=== PATIENT | male | born 1985 ===

== ENCOUNTER 2020-03-09 07:06 | Outpatient (REF) | payer OTHER, SELFPAY | END 2020-03-09 07:07 | disposition home or self-care (01) | LOC: HO.LAB 07:06 | PROVIDERS: Visit Provider Internal Medicine | DX: Z20.822 Contact with and (suspected) exposure to COVID-19 (principal) | CPT/HCPCS: 36415; C9803; U0003 ==

== ENCOUNTER 2020-06-11 09:34 | Outpatient (REF) | payer OTHER, SELFPAY ==
[2020-06-11 09:53] LABS: COVID-19 Test Negative (Negative); IDNOW Serial# 55D5AD1C
== END 2020-06-11 09:35 | disposition home or self-care (01) ==
LOC: HO.LAB 09:34
PROVIDERS: Visit Provider Internal Medicine
DX: Z20.822 Contact with and (suspected) exposure to COVID-19 (principal)
CPT/HCPCS: 36415; 87635; C9803

== ENCOUNTER 2021-01-14 07:38 | Emergency (ER) | payer MEDICAID, SELFPAY ==
--- NOTE | ~2021-01-14 | XR_ITS ---
EXAMINATION: XR LUMBAR SPINE XR PELVIS WITH HIP, LEFT CLINICAL INFORMATION: Low back pain radiating down left leg. Left hip pain. COMPARISON: None TECHNIQUE: The lumbar spine is imaged in 3 views. AP view pelvis is performed along with AP and frog-lateral projections left hip. FINDINGS: Lumbar spine: There are 5 nonrib-bearing lumbar vertebrae of normal height and normal lumbar lordosis. There is no lumbar vertebral compression, spondylolisthesis, or destructive process. There are degenerative disc changes at L4-L5 with disc narrowing and endplate sclerosis and vertebral spurring. There are borderline degenerative changes lumbosacral junction. The SI joints and visualized sacrum are unremarkable. Pelvis and left hip: There is no diastases SI joints or pubis. The bony pelvis appears intact. Bowel gas unremarkable. There are calcified phleboliths lower left pelvis. There is no fracture or dislocation. The hip show no joint narrowing or erosive change or chondrocalcinosis. Soft tissue planes around the hips appear normal. Left hip unremarkable. XR/XR lumbar spine 2-3V IMPRESSION: 1. Degenerative disc changes L4-L5. Borderline degenerative disc changes L5-S1. 2. No fracture or dislocation. No hip arthropathy.
--- NOTE | ~2021-01-14 | XR_ITS ---
EXAMINATION: XR LUMBAR SPINE XR PELVIS WITH HIP, LEFT CLINICAL INFORMATION: Low back pain radiating down left leg. Left hip pain. COMPARISON: None TECHNIQUE: The lumbar spine is imaged in 3 views. AP view pelvis is performed along with AP and frog-lateral projections left hip. FINDINGS: Lumbar spine: There are 5 nonrib-bearing lumbar vertebrae of normal height and normal lumbar lordosis. There is no lumbar vertebral compression, spondylolisthesis, or destructive process. There are degenerative disc changes at L4-L5 with disc narrowing and endplate sclerosis and vertebral spurring. There are borderline degenerative changes lumbosacral junction. The SI joints and visualized sacrum are unremarkable. Pelvis and left hip: There is no diastases SI joints or pubis. The bony pelvis appears intact. Bowel gas unremarkable. There are calcified phleboliths lower left pelvis. There is no fracture or dislocation. The hip show no joint narrowing or erosive change or chondrocalcinosis. Soft tissue planes around the hips appear normal. Left hip unremarkable. XR/XR hip LT w PEL1V IMPRESSION: 1. Degenerative disc changes L4-L5. Borderline degenerative disc changes L5-S1. 2. No fracture or dislocation. No hip arthropathy.
[2021-01-14 07:39] VITALS: BP 143/75; PULSE 107; RESP 18; TEMP 36.6; O2SAT 98; BMI 23.5
--- NOTE | 2021-01-14 08:01 | ED.BACK ---
HPI - Back Pain/Injury General Chief Complaint: Back Pain/Injury Stated Complaint: low back/leg pain Time Seen by Provider: 01/14/21 07:43 Source: patient Mode of arrival: ambulatory Limitations: no limitations Related Data Allergies Allergy/AdvReac Type Severity Reaction Status Date / Time No Known Allergies Allergy Unverified 11/06/19 15:48 [No Known Allergies*] [facility] Past Medical History Attestation statement: The following information was validated with the patient. Medical History HTN (hypertension) Social History Social History (Updated 01/14/21 @ 08:03 by Terra Calvin DO) Patient Tobacco Use Status: Never used Tobacco Use of substances other than those prescribed or required for medical reasons: No Advance Directives: No Physical Exam Vital Signs: Vital Signs: Last Vital Signs Temp 98 F 01/14/21 07:39 Pulse 107 H 01/14/21 07:39 Resp 18 01/14/21 07:39 BP 143/75 H 01/14/21 07:39 Pulse Ox 98 01/14/21 07:39 Body Mass Index 23.5
[2021-01-14] MEDS: Cyclobenzaprine HCl 10 MG TABLET PO (08:55)
--- NOTE | 2021-01-14 08:55 | ED_ITS ---
HPI - General Adult General Chief complaint: Back Pain/Injury Stated complaint: low back/leg pain Time Seen by Provider: 01/14/21 07:43 Source: patient Mode of arrival: ambulatory Limitations: no limitations History of Present Illness HPI narrative: 35-year-old male with history of chronic back pain presents to ED for back pain exacerbation the past 2 weeks. Patient states back pain radiating down left hip down left lower extremity tingling. Patient denies any urinary/bowel incontinence. She denies any recent trauma, abdominal pain, flank pain, dysuria, hematuria, nausea, or vomiting. Related Data Previous Rx's Medication Instructions Recorded cyclobenzaprine 10 mg tablet 10 mg PO TID PRN #21 tab 01/14/21 ketorolac 10 mg tablet 10 mg PO QID PRN 5 Days #20 tab 01/14/21 oxycodone-acetaminophen 5 mg-325 1 tab PO TID PRN 3 Days #9 tab 01/14/21 mg tablet (Percocet) prednisone 20 mg tablet 60 mg PO DAILY 5 Days #15 tab 01/14/21 Allergies Allergy/AdvReac Type Severity Reaction Status Date / Time No Known Allergies Allergy Unverified 11/06/19 15:48 [No Known Allergies*] Review of Systems Review of Systems: Yes all other systems are reviewed and are negative Constitutional: Constitutional: Reports as per HPI and Reports no additional constitutional complaints Eyes: Eyes: Reports as per HPI and Reports no additional eye complaints ENT: Reports system reviewed and no additional complaints, except as documented and Reports as per HPI Cardiovascular: Cardiovascular: Reports as per HPI and Reports no additional cardiovascular complaints Respiratory: Respiratory: Reports as per HPI and Reports no additional respiratory complaints Gastrointestinal: Gastrointestinal: Reports as per HPI and Reports no addition al gastrointestinal complaints Genitourinary: Genitourinary: Reports no additional male genitourinary complaints and Reports as per HPI Musculoskeletal: Musculoskeletal: Reports no additional musculoskeletal complaints, Reports as per HPI and Reports back pain Integumentary/Breasts: Skin/Breast: Reports system reviewed and no additional complaints, except as docu and Reports as per HPI Neurologic: Reports system reviewed and no additional complaints, except as documented and Reports as per HPI PMFSH Past Medical History Medical History HTN (hypertension) Social History Social History (Updated 01/14/21 @ 08:03 by Terra Calvin DO) Patient Tobacco Use Status: Never used Tobacco Use of substances other than those prescribed or required for medical reasons: No Advance Directives: No Physical Exam Vital Signs: Vital Signs: Last Vital Signs Temp 98 F 01/14/21 07:39 Pulse 107 H 01/14/21 07:39 Resp 18 01/14/21 07:39 BP 143/75 H 01/14/21 07:39 Pulse Ox 98 01/14/21 07:39 Body Mass Index 23.5 Const: General: cooperative, healthy appearing, well developed, alert, awake and acute distress Orientation/consciousness: patient oriented x3 HENMT: Head: Yes normal to inspection, Yes No palpable skull fracture present, Yes normocephalic and Yes atraumatic Eyes: General: appearance normal, both eyes and all related structures Neck: Neck: Yes normal visual inspection, Yes full ROM, Yes no lymphade nopathy, Yes no meningeal signs, Yes trachea midline, Yes supple, No anterior neck swelling and No tender Chest: Chest palpation & inspection: normal inspection of the chest and normal palpation of entire chest wall Resp: Effort & Inspection: normal respiratory effort and able to speak in co mplete sentences Auscultation: clear to auscultation bilaterally Cardio: Jugular venous distension: no JVD Heart sounds: S1 normal heart sound present and S2 normal heart sound present GI: Inspection: Yes normal to inspection and No abdominal wall ecchymosis Palpation (GI): Soft to palpation, not firm, nontender and no guarding : General: No CVA tenderness and Yes no CVA tenderness Back/Spine/Pelvis: Back: no CVA tenderness, No CVA tenderness and back tenderness (Lumbar) Skin: General skin exam: no rashes or lesions noted and elasticity normal Neuro: General: patient oriented x3, gait normal, no meningeal signs and CN's II-XI intact bilaterally Cranial nerves: Yes CN's II-XII intact bilaterally Extrem: General: Yes normal to inspection and Yes full ROM Psych: Appearance: grossly normal, well kempt and not disheveled Course Course Course Narrative: Pain meds and images ordered for patient. 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 Patient has normal gait. Not suspecting cord compression or epidural abscess. Patient denies any history of HIV, hepatitis-C, IV drug use or any immunocompromised states. patient denies any urinary/bowel incontinence. Patient's symptoms improved after receiving tramadol, Valium, cyclobenzaprine, steroids, and Toradol. Time: 10:33 Medical Decision Making [facility] Narrative Medical decision making narrative: Lumbar radiculopathy Discharge Plan Discharge Clinical Impression: Lumbar radiculopathy Patient Disposition: Home, Self-Care Instructions: Lumbar Radiculopathy (ED) Additional Instructions: Your x-ray shows degenerative arthritis of the lumbar spine. This is causing her pain. You will be discharged with pain medication and steroids. Uni follow-up with primary care for vital for possible referred to physical therapy. Return to the ED for any urinary/bowel incontinence, inability to ambulate, weakness in lower extremities, abdominal pain, nausea, vomiting, flank pain, fever, chills, dysuria, hematuria Prescriptions: New ketorolac 10 mg tablet 10 mg PO QID PRN (Reason: pain) 5 Days Qty: 20 RF: 0 prednisone 20 mg tablet 60 mg PO DAILY 5 Days Qty: 15 RF: 0 oxycodone-acetaminophen [Percocet] 5-325 mg tablet 1 tab PO TID PRN (Reason: pain) 3 Days Qty: 9 RF: 0 cyclobenzaprine 10 mg tablet 10 mg PO TID PRN (Reason: pain) Qty: 21 RF: 0 Stand Alone Forms: Work/School Release Interventions: ED Discharge Assessment Last Done: 01/14/21 11:08 Discharge Date/Time: 01/14/21 11:09 Print Language: Polish
[2021-01-14] MEDS: Ketorolac Tromethamine 60 MG/2 ML VIAL IM (08:56)
[2021-01-14] MEDS: predniSONE 20 MG TABLET 60 MG PO (08:57)
[2021-01-14] MEDS: traMADoL HCL 50 MG TABLET PO (10:02)
[2021-01-14] MEDS: diazePAM 5 MG TABLET PO (10:02)
== END 2021-01-14 11:09 | disposition home or self-care (01) ==
PROVIDERS: Emergency Provider Emergency Medicine
DX: M54.16 Radiculopathy, lumbar region (principal); M54.42 Lumbago with sciatica, left side; I10 Essential (primary) hypertension
CPT/HCPCS: 72100; 73502; 96372; 99284; J1885

== ENCOUNTER → 2021-12-16 08:10 | Outpatient (BNVA) | payer SELFPAY | PROVIDERS: Visit Provider Internal Medicine | DX: Z02.79 Encounter for issue of other medical certificate (principal) ==

== ENCOUNTER 2022-04-03 07:55 | Emergency (ER) | payer MEDICAID, SELFPAY ==
--- NOTE | ~2022-04-03 | XR_ITS ---
EXAMINATION: XR TOES, RIGHT CLINICAL INFORMATION: Trauma, pain COMPARISON: None TECHNIQUE: AP view right foot in 2 views right great toe are obtained for a total of 3 views. FINDINGS: There is subtle nondisplaced comminuted hairline fractures suggested involving the distal phalanx great toe at shaft and distal phalanx tuft, best appreciated on the AP view of the foot. There is no distraction or displacement. No destructive process or dislocation. The remainder the bony structures appear intact. Incidental bone island present base third toe middle phalanx. XR/XR toe RT min 2V IMPRESSION: Nondisplaced comminuted hairline fracture distal phalanx great toe.
[2022-04-03 07:56] VITALS: BP 143/86; PULSE 84; RESP 18; TEMP 36.6; O2SAT 98; BMI 26.9
--- NOTE | 2022-04-03 08:07 | ED_ITS ---
HPI - General Adult General Chief complaint: Extremity Injury, Lower Stated complaint: r foot inj dropped dresser on it Time Seen by Provider: 04/03/22 08:07 Source: patient Mode of arrival: ambulatory Limitations: no limitations History of Present Illness HPI narrative: Patient is a 36 year old assigned male at with no reported medical history presenting to the emergency department today with right great toe pain. Patient states that he dropped a dresser on his right great toe 3 days ago and it is still causing him pain. Patient denies any dizziness, lightheadedness, abdominal pain, nausea, vomiting, fever, chills, blurry vision, double vision, loss of vision, chest pain, difficulty breathing, shortness of breath, back pain, night sweats, pain with urination, increased urinary frequency, increased urinary urgency, blood in his urine or stool, syncope or a near syncopal episode, bowel incontinence, bladder incontinence, bowel retention, bladder retention, or any other complaints at this time. Onset (ago): day(s) (3) Location: right and lower extremity (great toe) Radiation: non-radiation Severity: mild Severity scale (1-10): 3 Quality: dull Pain Consistency: constant Relieving factors: none Exacerbating factors: movement Associated symptoms: denies other symptoms Treatments prior to arrival: none Related Data Previous Rx's Medication Instructions Recorded cyclobenzaprine 10 mg tablet 10 mg PO TID PRN pain #21 tabs 01/14/21 ketorolac 10 mg tablet 10 mg PO QID PRN pain 5 days #20 01/14/21 tabs oxycodone-acetaminophen 5 mg-325 1 tab PO TID PRN pain 3 days #9 01/14/21 mg tablet (Percocet) tabs prednisone 20 mg tablet 60 mg PO DAILY 5 days #15 tabs 01/14/21 Allergies Allergy/AdvReac Type Severity Reaction Status Date / Time No Known Allergies Allergy Verified 04/03/22 08:01 [No Known Allergies*] Review of Systems Constitutional: Constitutional: Reports no additional constitutional complaints, Denies chills, Denies fever(s) and Denies night sweats Eyes: Eyes: Reports no additional eye complaints, Denies blurry vision, Denies change in vision, Denies diplopia, Denies eye discharge, Denies loss of vision and Denies eye pain ENT: Denies dizziness Cardiovascular: Cardiovascular: Reports no additional cardiovascular complaints, Denies chest pain, Denies lightheadedness, Denies Loss of Consciousness and Denies dyspnea Respiratory: Respiratory: Reports no additional respiratory complaints and Denies dyspnea Gastrointestinal: Gastrointestinal: Reports no additional gastrointestinal complaints, Denies abdominal pain, Denies melena, Denies hematochezia, Denies change in bowel habits and Denies change in stool character Genitourinary: Genitourinary: Reports no additional male genitourinary complaints, Denies hematuria, Denies oliguria, Denies difficulty urinating, Denies dysuria, Denies urinary frequency, Denies urinary hesitancy, Denies urinary incontinence and Denies urinary urgency Musculoskeletal: Musculoskeletal: Reports no additional musculoskeletal complaints, Denies numbness and Denies tingling Comments: right great toe pain Neurologic: Denies dizziness, Denies loss of vision, Denies numbness and Denies tingling Psychiatric: Psychiatric: Reports no additional psychiatric complaints Endocrine: Endocrine: Reports no additional endocrine complaints Hematologic/Lymphatic: Hematologic/Lymphatic: Reports no additional hematologic/lymphatic complaints Allergic/Immunologic: Allergic/Immunologic: Reports no additional allergic/immunologic complaints PMFSH Past Medical History Attestation statement: The following information was validated with the patient. Source: old records reviewed and nursing notes reviewed Medical History HTN (hypertension) Social History Social History Alcohol intake: never Patient Tobacco Use Status: Never used Tobacco Smoked in Last 30 Days: Yes Use of substances other than those prescribed or required for medical reasons: No Advance Directives: No Advance Directives Information Provided: Yes Physical Exam ED Vital Signs: Vital Signs - 24 hr 04/03/22 07:56 04/03/22 10:19 Temperature 97.9 F 97.7 F Pulse Rate 84 66 Respiratory Rate 18 16 Blood Pressure 143/86 H 118/71 Pulse Oximetry 98 97 Oxygen Delivery Method Room Air Room Air BMI result Body Mass Index 26.9 Const General: cooperative, no acute distress, alert and awake Nutritional Appearance: well nourished Orientation/consciousness: patient oriented x3 Limitations: no limitations HENMT Head: Yes normal to inspection and Yes atraumatic Ears: hearing grossly normal bilaterally and external ears normal General nose exam: Normal external nose present, no nasal discharge noted and no epistaxis Face and sinus: Yes normal facial exam, No abrasion and No laceration Mouth: Normal oral and palatal mucosa present, no drooling and no muffled voice Eyes General: appearance normal, both eyes and all related structures Periorbital: periorbital findings normal Eyelids: Yes eyelids normal Conjunctivae: conjunctivae normal Pupils: Equal, round and reactive pupils present EOM: EOMs intact bilaterally Neck Neck: Yes normal visual inspection, Yes full ROM and Yes no lymphadenopathy Chest Chest palpation & inspection: normal inspection of the chest Resp Effort & Inspection: normal respiratory effort and able to speak in complete sentences Auscultation: clear to auscultation bilaterally Cardio Rate: regular rate Rhythm: regular rhythm GI Inspection: Yes normal to inspection Palpation (GI): Soft to palpation, not firm, nontender and no guarding Neuro General: patient oriented x3 and moves all extremities Cranial nerves: Yes Equal, round and reactive pupils present Cognition (Neuro): normal cognition Motor exam (neuro): 5/5 motor strength present throughout Sensory Exam: Normal double simultaneous stimulation for sensation Coordination: [id number] test normal Extrem General: Yes normal to inspection, Yes full ROM and Yes capillary refill normal Psych Appearance: grossly normal Mental Status: mental status grossly normal Affect: normal affect Attitude: cooperative Thought process: Normal thought process present Thought content: Normal thought content present Insight: Good insight present (Psych) Procedures Orthopedic Splinting/Casting Injury #1: Side: right Lower Extremity Injury Location: toe Lower Extremity Immobilizer: boot orthosis Medical Decision Making Medical Decision Making MDM Narrative: Patient is a 36 year old assigned male at with no reported medical history presenting to the emergency department today with right great toe injury. Patient's physical exam was unremarkable. Patient's right toe x-ray showed an acute right great toe fracture. I explained my physical exam findings as well as all test results to the patient. I answered all questions asked by the patient. Patient's right foot was placed in a walking boot, without incident. I stressed the importance of the patient taking his medication as prescribed. I stressed the importance of the patient following up with his primary care provider and an orthopedic provider. I stressed the importance of the patient returning to the emergency department immediately if his symptoms were to worsen or if he were to develop any dizziness, shortness of breath, difficulty breathing, chest pain, blurry vision, loss of vision, nausea, vomiting, abdominal pain, fever, chills, back pain, or any other complaints. Patient verbalized agreement and understanding with this treatment plan and discharge. Differential Diagnosis Differential Diagnoses: The differential diagnosis associated with the presentation includes right great toe fracture Independent Interpretation Interpretation: My interpretation is in agreement with the radiologist's impression of this imaging study. EXAMINATION: XR TOES, RIGHT CLINICAL INFORMATION: Trauma, pain COMPARISON: None TECHNIQUE: AP view right foot in 2 views right great toe are obtained for a total of 3 views. FINDINGS: There is subtle nondisplaced comminuted hairline fractures suggested involving the distal phalanx great toe at shaft and distal phalanx tuft, best appreciated on the AP view of the foot. There is no distraction or displacement. No destructive process or dislocation. The remainder the bony structures appear intact. Incidental bone island present base third toe middle phalanx. XR/XR toe RT min 2V IMPRESSION: Nondisplaced comminuted hairline fracture distal phalanx great toe. Dictated By: Johnny Martinez MD Signed By: Electronically signed by Johnny Martinez MD 04/03/22 0944 Discharge Plan Discharge Clinical Impression: Fracture of toe Patient Disposition: Home, Self-Care Instructions: Toe Fracture (ED), Walking Boot (ED) Additional Instructions: Follow up with your primary care provider. Return to the emergency department immediately if your symptoms worsen or if you develop any dizziness, shortness of breath, difficulty breathing, chest pain, blurry vision, loss of vision, nausea, vomiting, abdominal pain, fever, chills, back pain, or any other complaints. Prescriptions: No Action ketorolac 10 mg tablet 10 mg PO QID PRN (Reason: pain) 5 Days Qty: 20 0RF Rx Instructions: patient received IM 60mg toradol in the ED prednisone 20 mg tablet 60 mg PO DAILY 5 Days Qty: 15 0RF oxycodone-acetaminophen [Percocet] 5-325 mg tablet 1 tab PO TID PRN (Reason: pain) 3 Days Qty: 9 0RF Rx Instructions: side effect is drowsiness. Do not take at work or while driving. cyclobenzaprine 10 mg tablet 10 mg PO TID PRN (Reason: pain) Qty: 21 0RF Rx Instructions: side effect is drowsiness. Do not take at work or while driving. [place]errals: [facility] [Provider Group] (Call to establish and follow up with an orthopedic provider. ) [facility] [Primary Care Provider] - Stand Alone Forms: Work/School Release Interventions: ED Discharge Assessment Last Done: 04/03/22 10:44 Discharge Date/Time: 04/03/22 10:44 Print Language: Divehi
[2022-04-03 10:19] VITALS: BP 118/71; PULSE 66; RESP 16; TEMP 36.5; O2SAT 97
== END 2022-04-03 10:44 | disposition home or self-care (01) ==
PROVIDERS: Emergency Provider Emergency Medicine
DX: S92.424A Nondisplaced fracture of distal phalanx of right great toe, initial encounter for closed fracture (principal); W20.8XXA Other cause of strike by thrown, projected or falling object, initial encounter; Y93.89 Activity, other specified; Y92.019 Unspecified place in single-family (private) house as the place of occurrence of the external cause; Y99.9 Unspecified external cause status
CPT/HCPCS: 73660; 99283; 99284

== ENCOUNTER 2022-10-01 19:23 | Emergency (ER) | payer MEDICAID, SELFPAY ==
[2022-10-01 19:58] VITALS: BP 119/75; PULSE 86; RESP 18; TEMP 36.6; O2SAT 97; BMI 27.2
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
== END 2022-10-01 20:12 | disposition home or self-care (01) ==
LOC: HO.ED 20:06
PROVIDERS: Emergency Provider Internal Medicine
DX: M54.50 Low back pain, unspecified (principal)
CPT/HCPCS: 99282

== ENCOUNTER 2023-05-22 13:48 | Emergency (ER) | payer OTHER, SELFPAY ==
--- NOTE | ~2023-05-22 | XR_ITS ---
EXAMINATION: XR HAND/WRIST, RIGHT CLINICAL INFORMATION: Punched wall COMPARISON: None TECHNIQUE: Four views of the right hand and wrist. FINDINGS: No acute visible fracture or dislocation. Slight positive variance. Joint spaces and alignment are otherwise maintained. Soft tissues are unremarkable. XR/XR hand wrist RT IMPRESSION: 1. No acute visible fracture or dislocation. 2. Slight positive variance.
[2023-05-22 14:24] VITALS: BP 116/73; PULSE 94; RESP 16; TEMP 36.6; O2SAT 97; BMI 25.1
--- NOTE | 2023-05-22 15:43 | ED.EXTPRO ---
HPI - Extremity Problem General Chief complaint: Extremity Injury, Upper Stated complaint: R Hand Pain Time Seen by Provider: 05/22/23 14:36 Source: patient and RN notes reviewed Mode of arrival: ambulatory Limitations: no limitations History of Present Illness HPI Narrative: This is a 37-year-old male, with no known medical problems, presenting to the emergency department with complaints of right hand pain x2 days. Patient states that he was playing with a virtual video game and accidentally punched a wall. He states that he has had ongoing pain in his right hand. Denies history of hand fractures in the same in the past. Denies taking any medications prior to his arrival today. Denies any numbness, tingling, or weakness. He states that the pain worsens with movement with palpation. He is right handed. No other complaints or concerns at this time. MD Complaint: extremity pain and extremity swelling Pain Consistency: constant Location: right and upper extremity Quality: aching Radiation: none Relieving factors: nothing Exacerbating factors: nothing Associated symptoms: denies other symptoms Related Data Previous Rx's Medication Instructions Recorded cyclobenzaprine 10 mg tablet 10 mg PO TID PRN pain #21 tabs 01/14/21 ketorolac 10 mg tablet 10 mg PO QID PRN pain 5 days #20 01/14/21 tabs oxycodone-acetaminophen 5 mg-325 1 tab PO TID PRN pain 3 days #9 01/14/21 mg tablet (Percocet) tabs prednisone 20 mg tablet 60 mg (3 x 20 mg) PO DAILY 5 days 01/14/21 #15 tabs Allergies Allergy/AdvReac Type Severity Reaction Status Date / Time No Known Allergies Allergy Verified 05/22/23 14:24 [No Known Allergies*] Review of Systems Review of Systems: Yes all other systems are reviewed and are negative Constitutional: Constitutional: Reports as per HPI [facility] Past Medical History Medical History HTN (hypertension) Social History Social History Alcohol intake: never Patient Tobacco Use Status: Never used Tobacco Advance Directives: No Physical Exam Vital Signs: Vital Signs: Last Vital Signs Temp 98 F 05/22/23 14:24 Pulse 94 05/22/23 14:24 Resp 16 05/22/23 14:24 BP 116/73 05/22/23 14:24 Pulse Ox 97 05/22/23 14:24 O2 Del Method Room Air 05/22/23 14:24 BMI result Body Mass Index 25.1 Const: General: cooperative, comfortable and no acute distress Orientation/consciousness: patient oriented x3 Limitations: no limitations HEENT: Head: Yes normal to inspection, Yes normocephalic and Yes atraumatic Ears: hearing grossly normal bilaterally General nose exam: Normal external nose present Face and sinus: Yes normal facial exam Mouth: Normal oral and palatal mucosa present, oropharynx normal and moist mucous membranes Throat: Yes posterior oropharynx normal Eyes: General: appearance normal, both eyes and all related structures Eyelids: Yes eyelids normal Conjunctivae: conjunctivae normal Sclerae: sclerae normal Pupils: Equal, round and reactive pupils present EOM: EOMs intact bilaterally Neck: Neck: Yes normal visual inspection, Yes full ROM and Yes no lymphadenopathy Lymphatic: no lymphadenopathy noted Chest: Chest palpation & inspection: normal inspection of the chest Resp: Effort & Inspection: normal respiratory effort and able to speak in complete sentences Auscultation: clear to auscultation bilaterally, no crackles, no rales, no rhonchi and no wheezes Cardio: Rate: regular rate Rhythm: regular rhythm Heart sounds: S1 normal heart sound present and S2 normal heart sound present GI: Inspection: Yes normal to inspection Skin: General skin exam: no rashes or lesions noted Trauma: no lacerations or abrasions Wounds: no wounds Neuro: General: patient oriented x3 and moves all extremities Cranial nerves: Yes Equal, round and reactive pupils present Extrem: Other: Right hand with mild edema and tenderness along the 4th MCP. No obvious bony deformity noted. Strong radial pulse. No open wounds. Able to make a fist. Able to oppose thumb to all digits without difficulty. General: Yes normal to inspection Right upper extremity: normal to inspection Left upper extremity: normal to inspection Right lower extremity: normal to inspection Left lower extremity: normal to inspection Course Reevaluation(s) Reevaluation #1: Patient left prior to completing treatment as he did not want to wait any longer for x-ray report to return. Time: 16:10 Reevaluation #2: X-ray returns, showing no acute fracture dislocation. Patient already left prior to being made aware of x-ray report. No further intervention warranted at this time. Time: 16:20 Medical Decision Making Medical Decision Making MDM Narrative: This is a 37-year-old male, with no known medical problems, presenting to the emergency department with complaints of right hand pain after punching a wall. On arrival, vital signs within normal limits. Differential diagnoses include fracture, contusion, sprain, strain, dislocation. Plan: X-ray right hand Differential Diagnosis Differential Diagnoses: The differential diagnosis associated with the presentation includes See above Independent Interpretation I performed an independent interpretation of an: Plain X-Ray Interpretation: I reviewed the x-ray and agree with the radiology report Radiology Impression Discussion of test interpretation with radiology: I have reviewed the radiologist's reading. Radiologist Impression: EXAMINATION: XR HAND/WRIST, RIGHT CLINICAL INFORMATION: Punched wall COMPARISON: None TECHNIQUE: Four views of the right hand and wrist. FINDINGS: No acute visible fracture or dislocation. Slight positive variance. Joint spaces and alignment are otherwise maintained. Soft tissues are unremarkable. XR/XR hand wrist RT IMPRESSION: 1. No acute visible fracture or dislocation. 2. Slight positive variance. Discharge Plan Discharge Clinical Impression: Contusion of hand, right Patient Disposition: Left W/O Completing Treatment Prescriptions: No Action ketorolac 10 mg tablet 10 mg PO QID PRN (Reason: pain) 5 Days Qty: 20 0RF Rx Instructions: patient received IM 60mg toradol in the ED prednisone 20 mg tablet 60 mg PO DAILY 5 Days Qty: 15 0RF oxycodone-acetaminophen [Percocet] 5-325 mg tablet 1 tab PO TID PRN (Reason: pain) 3 Days Qty: 9 0RF Rx Instructions: side effect is drowsiness. Do not take at work or while driving. cyclobenzaprine 10 mg tablet 10 mg PO TID PRN (Reason: pain) Qty: 21 0RF Rx Instructions: side effect is drowsiness. Do not take at work or while driving. Discharge Date/Time: 05/22/23 16:14
--- NOTE | 2023-05-22 16:13 | PC.NURSE ---
pt did not want to wait for xray results, left without completing treatment.
== END 2023-05-22 16:14 | disposition left against medical advice (07) ==
PROVIDERS: Emergency Provider Emergency Medicine
DX: S60.221A Contusion of right hand, initial encounter (principal); I10 Essential (primary) hypertension; W22.09XA Striking against other stationary object, initial encounter; Y93.C2 Activity, hand held interactive electronic device; Y92.9 Unspecified place or not applicable; Y99.9 Unspecified external cause status
CPT/HCPCS: 73110; 73130; 99281; 99283

== ENCOUNTER 2024-02-07 07:46 | Emergency (ER) | payer MEDICAID, SELFPAY ==
[2024-02-07 07:48] VITALS: BP 129/85; PULSE 82; RESP 20; TEMP 36.9; O2SAT 96; BMI 26.5
--- NOTE | 2024-02-07 09:05 | ED_ITS ---
HPI - General Adult General Chief complaint: Skin/Abscess/Foreign Body Stated complaint: Swelling both legs / rash Time Seen by Provider: 02/07/24 09:05 Source: patient and RN notes reviewed Mode of arrival: ambulatory Limitations: no limitations History of Present Illness ED Provider: Cassandra Astudillo PA-C HPI narrative: This is a [id number] who presents to the ED due to rash x several weeks. Reports that this initially started on his hands and believes that it was from using latex gloves, He states that the rash has since progressed to bilateral legs. Reports dry and cracking in nature. No hx of similar symptoms. He denies any new soaps, lotions, detergents, medications or foods. He has been applying topical OTC ointments with minimal relief. Otherwise no fevers, chills, chest pain, SOB, abdominal pain, N/V/D. No other sick contacts with similar rash. No other complaints or concerns at this time. MD complaint: rash Onset (ago): week(s) Relieving factors: none Exacerbating factors: none Associated symptoms: denies other symptoms Related Data Previous Rx's ?Medication ?Instructions ?Recorded cyclobenzaprine 10 mg tablet 10 mg PO TID PRN pain #21 tabs 01/14/21 ketorolac 10 mg tablet 10 mg PO QID PRN pain 5 days #20 01/14/21 tabs oxycodone-acetaminophen 5 mg-325 1 tab PO TID PRN pain 3 days #9 01/14/21 mg tablet (Percocet) tabs prednisone 20 mg tablet 60 mg (3 x 20 mg) PO DAILY 5 days 01/14/21 #15 tabs prednisone 20 mg tablet 40 mg (2 x 20 mg) PO DAILY 5 days 02/07/24 #10 tabs Allergies Allergy/AdvReac Type Severity Reaction Status Date / Time No Known Allergies Allergy Verified 02/07/24 07:52 [No Known Allergies*] Review of Systems Review of Systems: Yes all other systems are reviewed and are negative [facility] Past Medical History Medical History HTN (hypertension) Social History Social History Alcohol intake: never Patient Tobacco Use Status: Never used Tobacco Advance Directives: No Advance Directives Information Provided: Yes Do you have a plan to hurt others: No Plan Physical Exam ED Vital Signs: Vital Signs - 24 hr 02/07/24 07:48 Temperature 98.4 F Pulse Rate 82 Respiratory Rate 20 Blood Pressure 129/85 Pulse Oximetry 96 Oxygen Delivery Method Room Air BMI result Body Mass Index 26.5 Const Other: General: Awake, alert, and oriented X3. No acute distress. HEENT: Normal inspection CVS: Normal heart rate and rhythm. Pulses normal. Respiratory: No respiratory distress Skin: Bilateral hands, dorsal aspect skin is cracking with plaques noted, no surrounding erythema, warmth, or drainage. Dry. Bilateral shins with large, dry plaques noted. BL upper arms flexor surface, dry cracking plaques noted. Extremities: see above Neuro: Oriented X 3. No motor deficit. No sensory deficit. Medical Decision Making Medical Decision Making MDM Narrative: 38 y/o M here with rash x several weeks. On arrival, VSS. Pt's rash is plaque like in nature, noted to flexor surface of extremities. Rash likely atopic dermatitis vs psoriasis. Discussed with patient. Will treat with prednisone and advised to change to sensitive topical agents. Stressed the importance of f.u with dermatology as they can best assist with this type of rash/condition. He understands and agrees with plan. Pt given return precautions. Stable for d.c. Differential Diagnosis Differential Diagnoses: The differential diagnosis associated with the presentation includes atopic dermatitis, psoriasis, contact dermatitis, fungal Discharge Plan Discharge Clinical Impression: Rash Patient Disposition: Home, Self-Care Instructions: Eczema (ED), Psoriasis (ED), Acute Rash (ED) Additional Instructions: You were seen in the emergency department due to a rash. You may have eczema and or psoriasis. This is a condition that can flare up periodically throughout your lifetime. Please take prescribed prednisone as directed. Finish the entire course even if your symptoms improve. Keep your skin well moisturized, you may be able to find psoriasis cream and or eczema cream topically to use. Follow-up with the software development leader, call to make an appointment. You may also follow-up with your PCP to find a software development leader. If any new or worsening symptoms occur including but not limited to increased redness, swelling, drainage from the area, please seek emergent care. Prescriptions: New prednisone 20 mg tablet 40 mg PO DAILY 5 Days Qty: 10 0RF No Action ketorolac 10 mg tablet 10 mg PO QID PRN (Reason: pain) 5 Days Qty: 20 0RF Rx Instructions: patient received IM 60mg toradol in the ED prednisone 20 mg tablet 60 mg PO DAILY 5 Days Qty: 15 0RF oxycodone-acetaminophen [Percocet] 5-325 mg tablet 1 tab PO TID PRN (Reason: pain) 3 Days Qty: 9 0RF Rx Instructions: side effect is drowsiness. Do not take at work or while driving. cyclobenzaprine 10 mg tablet 10 mg PO TID PRN (Reason: pain) Qty: 21 0RF Rx Instructions: side effect is drowsiness. Do not take at work or while driving. Referrals: Faby Winters MD [Physician] - Interventions: ED Discharge Assessment Last Done: 02/07/24 09:40 Discharge Date/Time: 02/07/24 09:40 Print Language: [place] Verde[place]
[2024-02-07 09:40] VITALS: BP 129/85; PULSE 82; RESP 20; TEMP 36.9; O2SAT 96
== END 2024-02-07 09:40 | disposition home or self-care (01) ==
PROVIDERS: Emergency Provider Emergency Medicine Emergency Medical Services
DX: R21 Rash and other nonspecific skin eruption (principal)
CPT/HCPCS: 99282; 99283